=== PATIENT | female | born 1960 | race Caucasian/White ===

== ENCOUNTER 2019-01-31 14:09 | Emergency (ER) | payer MEDICAID ==
[~2019-01-31] VITALS: Ht 167.6 cm; Wt 54.4 kg
[2019-01-31] MEDS ORDERED: SODIUM CHLORIDE 0.9% 1,000 ML IV ONE (14:56)
[2019-01-31] MEDS ORDERED: THIAMINE 100mg/ml INJ (200mg/2ml VIAL) IV ONE (15:00)
[2019-01-31 15:32] LABS: Basophils # (auto) 0.1 uL; Eosinophils # (auto) 0.1 uL; Lymphocytes # (auto) 2.7 uL; Monocytes # (auto) 0.8 uL; Monocytes % (auto) 7.2 % (0.0-12.0); White Blood Cell 10.7 10^3/uL (4.4-10.8)
[2019-01-31 15:34] LABS: Basophils % (auto) 1.1 % (0.0-2.0); Eosinophils % (auto) 0.8 % (0.0-7.0); Hematocrit 46.7 % (36.0-46.0); Hemoglobin 15.8 g/dL (12.2-16.2); Lymphocytes % (auto) 25.1 % (10.0-50.0); Mean Corpuscular Hemoglobin 35.1 pg (28.0-32.0); Mean Corpuscular Hgb Conc. 33.9 g/dL (32.0-36.0); Mean Corpuscular Volume 103.3 fL (80.0-100.0); Neutrophils % (auto) 65.8 % (37.0-80.0); Nucleated Red Blood Cells % 0.3 %; Platelet Count (auto) 347 10^3/uL (140-450); Red Blood Cells 4.52 10^6/uL (4.0-5.20); Red Cell Distribution Width 14.5 % (11.8-14.3)
[2019-01-31 15:46] LABS: Alanine Aminotransferase 39 U/L (13-56); Albumin 3.9 g/dL (3.4-5.0); Anion Gap 14 (5-15); Aspartate Aminotransferase 138 U/L (15-37); BUN/Creatinine Ratio 7.4; Blood Urea Nitrogen 5 mg/dL (7-18); Carbon Dioxide 24 mmol/L (21-32); Chloride 98 mmol/L (98-107); GFR African American 115 mL/min; GFR Non-African American 95 mL/min; Glucose 85 mg/dL (74-106); Potassium 3.4 mmol/L (3.5-5.1); Sodium 136 mmol/L (136-145)
[2019-01-31 15:50] LABS: Alkaline Phosphatase 98 U/L (45-117); Bilirubin, Total 1.3 mg/dL (0.2-1.0); Total Protein 9.1 g/dL (6.4-8.2)
[2019-01-31] MEDS ORDERED: POTASSIUM EFFERVESENT TAB 25 MEQ PO ONE (16:00)
[2019-01-31 17:44] VITALS: BP 142/80
== END 2019-01-31 16:47 | disposition home or self-care (01) ==
LOC: ER 14:14
DX: E86.0 Dehydration (principal); E87.6 Hypokalemia; F17.210 Nicotine dependence, cigarettes, uncomplicated; Z88.1 Allergy status to other antibiotic agents
CPT/HCPCS: 36415; 71045; 74176; 80053; 80320; 84484; 85025; 93005; 96361; 96374; 99284; J3411; J7030